=== PATIENT | male | born 1965 | race Caucasian/White ===

== ENCOUNTER 2018-02-24 11:24 | Day surgery (SDC) | payer BC ==
[2018-02-23 13:37] VITALS: BMI 23.7
[2018-02-24] MEDS ORDERED: Propofol 10 mg/ml Inj (20 ML) ONE (14:44)
[2018-02-24] MEDS ORDERED: Midazolam 2 MG/2 ML VIAL ONE (14:45)
[2018-02-24] MEDS ORDERED: Ciprofloxacin 400mg/200ml D5W 400 MG/200 ML BAG IVPB STA (15:45)
[2018-02-24] MEDS ORDERED: Oxycodone/Acetaminophen 5/325 mg Tab PO PRN (15:45)
[2018-02-24] MEDS ORDERED: Iohexol 240 (50 ml) ONE (15:57)
[2018-02-24 16:54] VITALS: O2SAT 100
[2018-02-24 18:39] VITALS: BP 112/67; PULSE 90; RESP 20; TEMP 98
--- NOTE | 2018-02-25 13:23 | RAD ---
HISTORY: URETHRAL STRICTURE COMPARISON: No prior. FINDINGS: BOWEL: Single film submitted. This is labeled "Last film ". Contrast material is seen within the urinary bladder. Bilateral hydroureter is demonstrated. The bowel gas pattern is unremarkable. There are 2 calcifications in left upper quadrant of the abdomen measure 1.6 cm and 4.0 cm, respectively, in greatest dimension. There are extensive surgical clips seen throughout the central abdomen. BONES: Normal. OTHER FINDINGS: None. IMPRESSION: Bilateral hydroureter.
--- NOTE | 2018-03-11 21:52 | OP ---
PROCEDURE DATE: 02/24/2018 PREOPERATIVE DIAGNOSES: Voiding dysfunction, urinary retention. POSTOPERATIVE DIAGNOSES: Voiding dysfunction, urinary retention. PROCEDURE: Cystoscopy, internal operative urethrotomy, and a cystogram. SURGEON: Maximiliano Bryant MD COMPLICATIONS: There were no complications. INDICATIONS: See history and physical for further details. BLOOD LOSS: Less than 10 mL. The patient ____ discussed risks, benefits, and alternatives, specifically also discussed the risks of recurrence. Risks of bleeding versus infection. DESCRIPTION OF PROCEDURE: After obtaining informed consent, the patient was placed on the table. Routine monitors were placed. Time-out was called to confirm the patient positioning. We identified the stricture. Once we identified the stricture, internal optical urethrotomy was done. We ____ inside of the bladder. Holt catheter was left in for straight drainage. Overall, the patient tolerated the procedure well without complication. The patient was brought to the recovery room in stable condition. Plans are for a voiding trial to follow. Further plans to follow. Maximiliano Bryant MD
== END 2018-02-24 18:35 | disposition home or self-care (01) ==
LOC: C.SDS 11:24
PROVIDERS: ATTEND Urology
DX: N35.9 Urethral stricture, unspecified (principal); R31.9 Hematuria, unspecified; R33.9 Retention of urine, unspecified
CPT/HCPCS: 51600; 52276; 74018; C1769; J0744; J1580; Q9966

== ENCOUNTER 2018-12-01 09:37 | Outpatient (CLI) | payer BC | END 2018-12-01 09:38 | disposition home or self-care (01) | LOC: C.EKG 09:37 | DX: Z12.5 Encounter for screening for malignant neoplasm of prostate (principal) ==